=== PATIENT | male | born 1965 | race Caucasian/White ===

== ENCOUNTER 2020-10-27 11:44 | Observation (INO) ==
[2020-10-27] MEDS ORDERED: SODIUM CHLORIDE 0.9% 1,000 ML IV STA (12:58)
[2020-10-27 13:09] LABS: Basophils % 0.3 % (0.0-0.8); Eosinophils # 0.1 10*3/uL (0.0-0.87); Eosinophils % 0.9 % (0.00-10.9); Hematocrit 45.6 VOL% (42.0-52.0); Immature Granulocytes % 0.3 %; Immature Granulocytes Absolute 0.02 #; Lymphocytes # 0.8 10*3/uL (1.4-4.0); Lymphocytes % 10.7 % (21.2-54.2); Mean Corpuscular HGB Conc 30.7 GM/DL (32-36); Mean Platelet Volume 9.1 FL (9.6-12.0); Neutrophils % 80.8 % (38.7-73.9); Platelet Count 290 T/CUMM (130-400); Red Blood Count 5.56 MC/CUMM (3.8-5.5); Red Cell Distribution Width 15.5 % (9.3-17.3)
[2020-10-27 13:29] LABS: Albumin 2.9 G/DL (3.4-5.0); Calcium 8.2 MG/DL (8.5-10.1); Osmolality,Calculated 277.7 MOS/KG (273-304); Potassium 3.8 MMOL/L (3.5-5.1)
[2020-10-27] MEDS ORDERED: ONDANSETRON 4 MG/2 ML VIAL IV ONE (14:42)
[2020-10-27] MEDS ORDERED: PANTOPRAZOLE 40 MG VIAL IV STA (14:43)
[2020-10-27] MEDS ORDERED: ONDANSETRON 4 MG/2 ML VIAL IV PRN (17:40)
[2020-10-27] MEDS ORDERED: hydrALAZINE 20 MG/1 ML VIAL IV PRN (17:40)
[2020-10-27] MEDS ORDERED: DEXTROSE 50% 25 GM/50 ML VIAL IV PRN (17:40)
[2020-10-27] MEDS ORDERED: GLUCAGON 1 MG VIAL IM PRN (17:40)
[2020-10-27] MEDS ORDERED: PROMETHAZINE 25 MG/1 ML VIAL IM PRN (17:40)
[2020-10-27 18:35] LABS: Risk Ratio 2.66; Thyroid Stimulating Hormone 4.04 uIU/ml (0.358-3.74); VLDL Cholesterol 31.8 MG/DL
[2020-10-27] MEDS: DICYCLOMINE 20 MG TABLET PO SCH (21:10)
[2020-10-27] MEDS ORDERED: ALUMINUM/MAGNES/SIMETH MAX STR 30 ML UDCUP PO PRN (22:37)
[2020-10-28 06:18] LABS: Calcium 8.2 MG/DL (8.5-10.1); Osmolality,Calculated 275.7 MOS/KG (273-304); Potassium 3.6 MMOL/L (3.5-5.1)
[2020-10-28 06:21] LABS: Basophils % 0.3 % (0.0-0.8); Eosinophils # 0.1 10*3/uL (0.0-0.87); Eosinophils % 1.5 % (0.00-10.9); Hematocrit 42.3 VOL% (42.0-52.0); Immature Granulocytes % 0.4 %; Immature Granulocytes Absolute 0.03 #; Lymphocytes # 1.6 10*3/uL (1.4-4.0); Mean Corpuscular HGB Conc 29.8 GM/DL (32-36); Mean Corpuscular Volume 83.3 FL (87-102); Mean Platelet Volume 9.2 FL (9.6-12.0); Monocytes % 9.4 % (1.7-12.7); Neutrophils % 65.4 % (38.7-73.9); Platelet Count 265 T/CUMM (130-400); Red Blood Count 5.08 MC/CUMM (3.8-5.5); Red Cell Distribution Width 15.7 % (9.3-17.3); White Blood Count 7.1 T/CUMM (4-12)
[2020-10-28 06:23] LABS: Hemoglobin 12.6 GM/DL (14.0-18.0)
[2020-10-28] MEDS ORDERED: LOPERAMIDE 2 MG CAPSULE PO PRN (07:34)
[2020-10-28] MEDS: metroNIDAZOLE 500 MG TABLET PO SCH ×3 (09:51→20:09)
[2020-10-28] MEDS: DICYCLOMINE 20 MG TABLET PO SCH ×2 (09:51→20:09)
[2020-10-28] MEDS: PANTOPRAZOLE 40 MG VIAL IV SCH (10:38)
[2020-10-28] MEDS: SODIUM CHLORIDE 0.9% 1,000 ML IV SCH ×4 (13:11→20:09)
[2020-10-29] MEDS: SODIUM CHLORIDE 0.9% 1,000 ML IV SCH ×2 (01:10→11:02)
[2020-10-29] MEDS: PANTOPRAZOLE 40 MG VIAL IV SCH (08:10)
[2020-10-29] MEDS: metroNIDAZOLE 500 MG TABLET PO SCH (08:10)
[2020-10-29] MEDS: DICYCLOMINE 20 MG TABLET PO SCH (08:10)
[2020-10-29 12:23] VITALS: BP 148/99
== END 2020-10-29 13:05 | disposition home or self-care (01) ==
LOC: N.EDINP 11:44 → N.ED 11:44 → N.EDINP 19:38 → N.5E 20:01
PROVIDERS: ADMIT Internal Medicine; ATTEND Internal Medicine

== ENCOUNTER 2021-09-02 16:40 | Inpatient (IN) ==
[2021-09-02] MEDS ORDERED: SODIUM CHLORIDE 0.9% 1,000 ML IV STA (17:17)
[2021-09-02] MEDS ORDERED: ONDANSETRON 4 MG/2 ML VIAL IV STA (17:17)
[2021-09-02 17:41] LABS: Basophils % 0.3 % (0.0-0.8); Eosinophils # 0.2 10*3/uL (0.0-0.87); Eosinophils % 1.5 % (0.00-10.9); Hematocrit 50.1 VOL% (42.0-52.0); Hemoglobin 15.7 GM/DL (14.0-18.0); Immature Granulocytes % 0.4 %; Immature Granulocytes Absolute 0.04 #; Lymphocytes # 1.9 10*3/uL (1.4-4.0); Lymphocytes % 18.3 % (21.2-54.2); Mean Corpuscular HGB Conc 31.3 GM/DL (32-36); Mean Corpuscular Volume 79.1 FL (87-102); Mean Platelet Volume 8.8 FL (9.6-12.0); Monocytes # 1.1 10*3/uL (0.11-0.8); Monocytes % 10.6 % (1.7-12.7); Neutrophils % 68.9 % (38.7-73.9); Platelet Count 431 T/CUMM (130-400); Red Blood Count 6.33 MC/CUMM (3.8-5.5); Red Cell Distribution Width 17.1 % (9.3-17.3); White Blood Count 10.3 T/CUMM (4-12)
[2021-09-02 18:06] LABS: Albumin 3.3 G/DL (3.4-5.0); Bilirubin,Total 1.4 MG/DL (0.20-1.00); Calcium 8.7 MG/DL (8.5-10.1); Osmolality,Calculated 276.1 MOS/KG (273-304); Potassium 3.7 MMOL/L (3.5-5.1); Total Protein 7.6 G/DL (6.4-8.2)
[2021-09-02 20:05] LABS: Bacteria,Urine Occasional /HPF (Few); Hyaline Casts,Urine 4 /LPF (0-3); Mucus,Urine Occasional /LPF (Occasional); RBC,Urine 4 /HPF (0-4); Squamous Epithelial Cell,Urine Occasional /HPF (0-10); Urine Appearance Clear (Clear); Urine Color Yellow (Yellow); Urine pH 5.5 (4.5-8.0)
[2021-09-02 20:06] LABS: Bilirubin,Urine Negative (Negative); Blood, Urine Negative (Negative); Glucose,Urine (UA) Negative (Negative); Ketones,Urine Negative (Negative); Nitrite,Urine Negative (Negative); Protein,Urine Negative (Negative); Urine Urobilinogen 0.2 eU/dL (<2.0)
[2021-09-02] MEDS ORDERED: GLUCAGON 1 MG VIAL IM PRN (20:19)
[2021-09-02] MEDS ORDERED: hydrALAZINE 20 MG/1 ML VIAL IV PRN (20:24)
[2021-09-02] MEDS ORDERED: ACETAMINOPHEN 325 MG TABLET PO PRN (20:24)
[2021-09-02] MEDS ORDERED: PROMETHAZINE 25 MG/1 ML VIAL IM PRN (20:24)
[2021-09-02] MEDS ORDERED: DEXTROSE 10% 250 ML BAG IV PRN (20:38)
[2021-09-02] MEDS ORDERED: HYOSCYAMINE 0.125 MG TABLET PO PRN (20:40)
[2021-09-02] MEDS ORDERED: ALUMINUM/MAGNES/SIMETH MAX STR 30 ML UDCUP PO PRN (20:40)
[2021-09-02] MEDS: PANTOPRAZOLE 40 MG VIAL IV SCH (21:48)
[2021-09-02] MEDS: SODIUM CHLORIDE 0.9% 1,000 ML IV SCH (21:48)
[2021-09-02] MEDS: CIPROFLOXACIN INJ 400 MG/200 ML PREMIX IV SCH (21:48)
[2021-09-02] MEDS: ENOXAPARIN 40 MG/0.4 ML SYRINGE SUBCUT SCH (21:48)
[2021-09-03 04:12] LABS: Albumin 2.9 G/DL (3.4-5.0); Bilirubin,Total 1.4 MG/DL (0.20-1.00); Calcium 8.1 MG/DL (8.5-10.1); Potassium 3.7 MMOL/L (3.5-5.1); Risk Ratio 2.78; Total Protein 6.5 G/DL (6.4-8.2)
[2021-09-03 04:20] LABS: Basophils % 0.3 % (0.0-0.8); Eosinophils # 0.1 10*3/uL (0.0-0.87); Eosinophils % 1.6 % (0.00-10.9); Hematocrit 46.5 VOL% (42.0-52.0); Hemoglobin 14.3 GM/DL (14.0-18.0); Immature Granulocytes % 0.8 %; Immature Granulocytes Absolute 0.07 #; Lymphocytes # 1.6 10*3/uL (1.4-4.0); Lymphocytes % 18.7 % (21.2-54.2); Mean Corpuscular HGB Conc 30.8 GM/DL (32-36); Mean Corpuscular Volume 80.4 FL (87-102); Mean Platelet Volume 8.9 FL (9.6-12.0); Monocytes % 11.3 % (1.7-12.7); Neutrophils % 67.3 % (38.7-73.9); Platelet Count 347 T/CUMM (130-400); Red Blood Count 5.78 MC/CUMM (3.8-5.5); Red Cell Distribution Width 15.4 % (9.3-17.3); White Blood Count 8.6 T/CUMM (4-12)
[2021-09-03] MEDS: LACTATED RINGERS 1,000 ML IV SCH ×2 (09:04→18:33)
[2021-09-03] MEDS: PANTOPRAZOLE 40 MG VIAL IV SCH (09:08)
[2021-09-03] MEDS: ONDANSETRON 4 MG/2 ML VIAL IV PRN (09:11)
[2021-09-03] MEDS: CIPROFLOXACIN INJ 400 MG/200 ML PREMIX IV SCH ×2 (09:11→20:40)
[2021-09-03] MEDS: VANCOMYCIN INJ 2,000 MG in SODIUM CHLORIDE 0.9% 500 ML IV SCH (16:40)
[2021-09-03] MEDS: ENOXAPARIN 40 MG/0.4 ML SYRINGE SUBCUT SCH (20:40)
[2021-09-03] MEDS: SODIUM CHLORIDE 0.9% 1,000 ML IV SCH (21:45)
[2021-09-04 03:45] LABS: Basophils % 0.5 % (0.0-0.8); Eosinophils # 0.2 10*3/uL (0.0-0.87); Eosinophils % 2.7 % (0.00-10.9); Hematocrit 42.3 VOL% (42.0-52.0); Hemoglobin 13.1 GM/DL (14.0-18.0); Immature Granulocytes % 0.4 %; Immature Granulocytes Absolute 0.03 #; Lymphocytes # 1.7 10*3/uL (1.4-4.0); Lymphocytes % 19.7 % (21.2-54.2); Monocytes # 0.9 10*3/uL (0.11-0.8); Monocytes % 10.3 % (1.7-12.7); Neutrophils % 66.4 % (38.7-73.9); Platelet Count 296 T/CUMM (130-400); Red Blood Count 5.22 MC/CUMM (3.8-5.5); Red Cell Distribution Width 15.3 % (9.3-17.3); White Blood Count 8.4 T/CUMM (4-12)
[2021-09-04] MEDS: VANCOMYCIN INJ 2,000 MG in SODIUM CHLORIDE 0.9% 500 ML IV SCH (04:00)
[2021-09-04] MEDS: LACTATED RINGERS 1,000 ML IV SCH ×3 (04:00→21:19)
[2021-09-04 04:10] LABS: Osmolality,Calculated 274.7 MOS/KG (273-304); Potassium 3.7 MMOL/L (3.5-5.1)
[2021-09-04] MEDS: CIPROFLOXACIN INJ 400 MG/200 ML PREMIX IV SCH ×2 (09:16→21:19)
[2021-09-04] MEDS: PANTOPRAZOLE 40 MG VIAL IV SCH (09:16)
[2021-09-04] MEDS ORDERED: DICYCLOMINE 20 MG TABLET PO ONE (12:46)
[2021-09-04] MEDS: ENOXAPARIN 40 MG/0.4 ML SYRINGE SUBCUT SCH (21:20)
[2021-09-04] MEDS: LOPERAMIDE 2 MG CAPSULE PO PRN (21:22)
[2021-09-05] MEDS: LACTATED RINGERS 1,000 ML IV SCH ×3 (04:33→16:04)
[2021-09-05] MEDS: CIPROFLOXACIN INJ 400 MG/200 ML PREMIX IV SCH (09:35)
[2021-09-05] MEDS: PANTOPRAZOLE 40 MG VIAL IV SCH (09:36)
[2021-09-05] MEDS: ENOXAPARIN 40 MG/0.4 ML SYRINGE SUBCUT SCH (21:23)
[2021-09-06] MEDS: LACTATED RINGERS 1,000 ML IV SCH ×3 (00:35→20:45)
[2021-09-06] MEDS: PANTOPRAZOLE 40 MG VIAL IV SCH (08:12)
[2021-09-06] MEDS: ONDANSETRON 4 MG/2 ML VIAL IV PRN (08:12)
[2021-09-06] MEDS: LOPERAMIDE 2 MG CAPSULE PO PRN (19:44)
[2021-09-06] MEDS: ENOXAPARIN 40 MG/0.4 ML SYRINGE SUBCUT SCH (20:45)
[2021-09-07 04:38] LABS: Basophils % 0.3 % (0.0-0.8); Eosinophils # 0.2 10*3/uL (0.0-0.87); Eosinophils % 3.2 % (0.00-10.9); Hematocrit 41.8 VOL% (42.0-52.0); Hemoglobin 12.6 GM/DL (14.0-18.0); Immature Granulocytes % 0.5 %; Immature Granulocytes Absolute 0.03 #; Lymphocytes # 1.3 10*3/uL (1.4-4.0); Lymphocytes % 21.3 % (21.2-54.2); Mean Corpuscular HGB Conc 30.1 GM/DL (32-36); Mean Corpuscular Volume 81.5 FL (87-102); Mean Platelet Volume 9.2 FL (9.6-12.0); Monocytes # 0.6 10*3/uL (0.11-0.8); Monocytes % 10.1 % (1.7-12.7); Neutrophils % 64.6 % (38.7-73.9); Platelet Count 292 T/CUMM (130-400); Red Blood Count 5.13 MC/CUMM (3.8-5.5)
[2021-09-07 05:22] LABS: Calcium 8.2 MG/DL (8.5-10.1); Osmolality,Calculated 272.7 MOS/KG (273-304); Potassium 3.6 MMOL/L (3.5-5.1)
[2021-09-07] MEDS: LACTATED RINGERS 1,000 ML IV SCH ×3 (09:26→17:57)
[2021-09-07] MEDS: PANTOPRAZOLE 40 MG VIAL IV SCH (09:26)
[2021-09-07] MEDS ORDERED: ZINC OXIDE PASTE 113 GM TUBE TOP PRN (11:05)
[2021-09-07] MEDS: LOPERAMIDE 2 MG CAPSULE PO PRN (21:23)
[2021-09-07] MEDS: ENOXAPARIN 40 MG/0.4 ML SYRINGE SUBCUT SCH (21:23)
[2021-09-08] MEDS: LACTATED RINGERS 1,000 ML IV SCH ×2 (02:09→08:42)
[2021-09-08] MEDS: PANTOPRAZOLE 40 MG VIAL IV SCH (08:41)
[2021-09-08 11:47] VITALS: BP 143/78
== END 2021-09-08 12:31 | disposition home or self-care (01) | DRG 392 ==
LOC: EDBD → EDUNIT# → N.ED 16:40 → N.EDINP 16:40 → SUATTDRO 20:19 → N.EDINP 09-03 12:37 → N.5E 09-03 12:48
PROVIDERS: ADMIT Internal Medicine; ATTEND Emergency Medicine

== ENCOUNTER 2021-09-16 12:28 | Inpatient (IN) ==
[2021-09-16] MEDS ORDERED: SODIUM CHLORIDE 0.9% 1,000 ML IV STA (12:40)
[2021-09-16 12:57] LABS: Basophils % 0.4 % (0.0-0.8); Eosinophils # 0.2 10*3/uL (0.0-0.87); Eosinophils % 2.8 % (0.00-10.9); Hematocrit 42.6 VOL% (42.0-52.0); Hemoglobin 13.2 GM/DL (14.0-18.0); Immature Granulocytes % 0.4 %; Immature Granulocytes Absolute 0.03 #; Lymphocytes # 1.3 10*3/uL (1.4-4.0); Lymphocytes % 18.6 % (21.2-54.2); Mean Corpuscular Volume 80.5 FL (87-102); Mean Platelet Volume 8.6 FL (9.6-12.0); Monocytes # 0.4 10*3/uL (0.11-0.8); Monocytes % 6.2 % (1.7-12.7); Neutrophils % 71.6 % (38.7-73.9); Platelet Count 338 T/CUMM (130-400); Red Blood Count 5.29 MC/CUMM (3.8-5.5); Red Cell Distribution Width 15.4 % (9.3-17.3); White Blood Count 7.1 T/CUMM (4-12)
[2021-09-16 13:21] LABS: Albumin 2.8 G/DL (3.4-5.0); Bilirubin,Total 1.1 MG/DL (0.20-1.00); Calcium 8.5 MG/DL (8.5-10.1); Osmolality,Calculated 283.3 MOS/KG (273-304); Potassium 3.6 MMOL/L (3.5-5.1)
[2021-09-16] MEDS ORDERED: LEVOFLOXACIN INJ 750 MG/150 ML PREMIX IV STA (13:28)
[2021-09-16] MEDS ORDERED: metroNIDAZOLE INJ 500 MG/100 ML PREMIX IV STA (13:45)
[2021-09-16] MEDS ORDERED: LACTATED RINGERS 2,000 ML IV ONE (14:07)
[2021-09-16] MEDS ORDERED: GLUCAGON 1 MG VIAL IM PRN (15:31)
[2021-09-16] MEDS ORDERED: hydrALAZINE 20 MG/1 ML VIAL IV PRN (15:31)
[2021-09-16] MEDS ORDERED: DEXTROSE 10% 250 ML BAG IV PRN (15:43)
[2021-09-16 17:30] LABS: Thyroid Stimulating Hormone 2.37 uIU/ml (0.358-3.74)
[2021-09-16] MEDS: LACTATED RINGERS 1,000 ML IV SCH (18:58)
[2021-09-16] MEDS: ENOXAPARIN 40 MG/0.4 ML SYRINGE SUBCUT SCH (18:58)
[2021-09-16] MEDS: PANTOPRAZOLE 40 MG VIAL IV SCH (18:59)
[2021-09-16] MEDS: DICYCLOMINE 10 MG CAPSULE PO SCH (21:33)
[2021-09-17 06:43] LABS: Basophils % 0.5 % (0.0-0.8); Eosinophils # 0.2 10*3/uL (0.0-0.87); Eosinophils % 3.5 % (0.00-10.9); Hematocrit 40.7 VOL% (42.0-52.0); Hemoglobin 12.7 GM/DL (14.0-18.0); Immature Granulocytes % 0.3 %; Immature Granulocytes Absolute 0.02 #; Lymphocytes # 1.1 10*3/uL (1.4-4.0); Lymphocytes % 19.5 % (21.2-54.2); Mean Corpuscular HGB Conc 31.2 GM/DL (32-36); Mean Corpuscular Volume 80.3 FL (87-102); Mean Platelet Volume 8.4 FL (9.6-12.0); Monocytes # 0.5 10*3/uL (0.11-0.8); Monocytes % 9.4 % (1.7-12.7); Neutrophils % 66.8 % (38.7-73.9); Platelet Count 292 T/CUMM (130-400); Red Blood Count 5.07 MC/CUMM (3.8-5.5); Red Cell Distribution Width 15.4 % (9.3-17.3); White Blood Count 5.8 T/CUMM (4-12)
[2021-09-17 07:01] LABS: Albumin 2.5 G/DL (3.4-5.0); Bilirubin,Total 0.9 MG/DL (0.20-1.00); Calcium 8.4 MG/DL (8.5-10.1); Osmolality,Calculated 278.3 MOS/KG (273-304); Potassium 3.4 MMOL/L (3.5-5.1); Risk Ratio 2.53; VLDL Cholesterol 23.4 MG/DL
[2021-09-17] MEDS: DICYCLOMINE 10 MG CAPSULE PO SCH ×2 (09:03→20:15)
[2021-09-17] MEDS: amLODIPine 5 MG TABLET PO SCH (09:03)
[2021-09-17] MEDS: PANTOPRAZOLE 40 MG VIAL IV SCH (09:04)
[2021-09-17] MEDS: metroNIDAZOLE INJ 500 MG/100 ML PREMIX IV SCH ×4 (09:05→22:00)
[2021-09-17] MEDS ORDERED: POTASSIUM CHLORIDE 20 MEQ TABLET PO ONE (11:00)
[2021-09-17] MEDS: LACTATED RINGERS 1,000 ML IV SCH ×2 (11:39→13:43)
[2021-09-17] MEDS ORDERED: BISACODYL 5 MG TABLET PO ONE (17:00)
[2021-09-17] MEDS ORDERED: POLYETHYLENE GLYCOL POWDER 255 GM BOTTLE PO ONE (18:00)
[2021-09-17] MEDS: LEVOFLOXACIN INJ 750 MG/150 ML PREMIX IV SCH (18:22)
[2021-09-18] MEDS: LACTATED RINGERS 1,000 ML IV SCH ×2 (04:05→13:37)
[2021-09-18] MEDS ORDERED: POLYETHYLENE GLYCOL POWDER 255 GM BOTTLE PO ONE (05:00)
[2021-09-18] MEDS: metroNIDAZOLE INJ 500 MG/100 ML PREMIX IV SCH ×3 (06:00→22:16)
[2021-09-18 06:25] LABS: PT Patient Result 11.3 SECS (10.5-12.0)
[2021-09-18] MEDS ORDERED: LACTATED RINGERS 1,000 ML IV SCH (08:00)
[2021-09-18] MEDS: PANTOPRAZOLE 40 MG VIAL IV SCH (08:17)
[2021-09-18] MEDS: DICYCLOMINE 10 MG CAPSULE PO SCH ×2 (08:18→20:51)
[2021-09-18] MEDS: amLODIPine 5 MG TABLET PO SCH (08:18)
[2021-09-18] MEDS ORDERED: LIDOCAINE 2% 5 ML VIAL ONE (10:59)
[2021-09-18] MEDS ORDERED: propofoL 200 MG/20 ML VIAL IV ONE (10:59)
[2021-09-18] MEDS ORDERED: ETOMIDATE 20 MG/10 ML VIAL IV ONE (11:02)
[2021-09-18] MEDS: LEVOFLOXACIN INJ 750 MG/150 ML PREMIX IV SCH (16:17)
[2021-09-19] MEDS: LACTATED RINGERS 1,000 ML IV SCH ×2 (03:05→13:29)
[2021-09-19 07:00] LABS: Calcium 8.1 MG/DL (8.5-10.1); Osmolality,Calculated 276.4 MOS/KG (273-304); Potassium 3.6 MMOL/L (3.5-5.1)
[2021-09-19] MEDS: metroNIDAZOLE INJ 500 MG/100 ML PREMIX IV SCH (07:43)
[2021-09-19] MEDS: amLODIPine 5 MG TABLET PO SCH (09:15)
[2021-09-19] MEDS: DICYCLOMINE 10 MG CAPSULE PO SCH (09:15)
[2021-09-19] MEDS: PANTOPRAZOLE 40 MG VIAL IV SCH (10:42)
[2021-09-19 12:51] LABS: Glucose,Urine (UA) Negative (Negative); Protein,Urine Negative (Negative); Urine Appearance Slightly Cloudy (Clear); Urine Color Yellow (Yellow); Urine Specific Gravity 1.015 (1.001-1.035); Urine pH 5.5 (4.5-8.0)
[2021-09-19 12:52] LABS: Bilirubin,Urine Negative (Negative); Blood, Urine Negative (Negative); Ketones,Urine Negative (Negative); Nitrite,Urine Positive (Negative); Urine Urobilinogen 0.2 eU/dL (<2.0)
[2021-09-19 12:55] LABS: Bacteria,Urine Many /HPF (Few); Mucus,Urine Occasional /LPF (Occasional); RBC,Urine 1 /HPF (0-4); Squamous Epithelial Cell,Urine Occasional /HPF (0-10)
[2021-09-19 13:01] LABS: Barbiturates Screen,Urine Negative (Negative); Benzodiazepines Screen,Urine Negative (Negative); Cannabinoid Screen,Urine Negative (Negative); Opiate Screen,Urine Negative (Negative); Phencyclidine Screen,Urine Negative (Negative)
[2021-09-19] MEDS: ENOXAPARIN 40 MG/0.4 ML SYRINGE SUBCUT SCH (16:07)
[2021-09-20 05:50] LABS: Basophils % 0.4 % (0.0-0.8); Eosinophils # 0.3 10*3/uL (0.0-0.87); Hematocrit 40.2 VOL% (42.0-52.0); Hemoglobin 12.3 GM/DL (14.0-18.0); Immature Granulocytes % 0.4 %; Immature Granulocytes Absolute 0.02 #; Lymphocytes # 1.3 10*3/uL (1.4-4.0); Lymphocytes % 23.3 % (21.2-54.2); Mean Corpuscular HGB Conc 30.6 GM/DL (32-36); Mean Corpuscular Volume 80.2 FL (87-102); Mean Platelet Volume 8.6 FL (9.6-12.0); Monocytes # 0.6 10*3/uL (0.11-0.8); Monocytes % 10.2 % (1.7-12.7); Neutrophils % 60.7 % (38.7-73.9); Platelet Count 298 T/CUMM (130-400); Red Blood Count 5.01 MC/CUMM (3.8-5.5); Red Cell Distribution Width 15.3 % (9.3-17.3); White Blood Count 5.6 T/CUMM (4-12)
[2021-09-20 06:09] LABS: Calcium 8.4 MG/DL (8.5-10.1); Osmolality,Calculated 278.3 MOS/KG (273-304); Potassium 3.2 MMOL/L (3.5-5.1)
[2021-09-20] MEDS: amLODIPine 5 MG TABLET PO SCH (08:57)
[2021-09-20] MEDS: PANTOPRAZOLE 40 MG VIAL IV SCH (08:58)
[2021-09-20] MEDS: MEROPENEM 500 MG in SODIUM CHLORIDE 0.9% 100 ML IV SCH ×3 (09:37→21:04)
[2021-09-20] MEDS: ONDANSETRON 4 MG/2 ML VIAL IV PRN ×2 (17:37→21:04)
[2021-09-20] MEDS: ACETAMINOPHEN 325 MG TABLET PO PRN (21:04)
[2021-09-21] MEDS: MEROPENEM 500 MG in SODIUM CHLORIDE 0.9% 100 ML IV SCH ×4 (04:23→20:35)
[2021-09-21 05:41] LABS: Basophils % 0.3 % (0.0-0.8); Eosinophils # 0.4 10*3/uL (0.0-0.87); Eosinophils % 6.4 % (0.00-10.9); Hematocrit 43.9 VOL% (42.0-52.0); Hemoglobin 13.3 GM/DL (14.0-18.0); Immature Granulocytes % 0.4 %; Immature Granulocytes Absolute 0.03 #; Lymphocytes # 1.6 10*3/uL (1.4-4.0); Lymphocytes % 23.7 % (21.2-54.2); Mean Corpuscular HGB Conc 30.3 GM/DL (32-36); Mean Corpuscular Volume 80.7 FL (87-102); Mean Platelet Volume 8.7 FL (9.6-12.0); Monocytes # 0.6 10*3/uL (0.11-0.8); Neutrophils % 60.2 % (38.7-73.9); Platelet Count 338 T/CUMM (130-400); Red Blood Count 5.44 MC/CUMM (3.8-5.5); Red Cell Distribution Width 15.4 % (9.3-17.3); White Blood Count 6.9 T/CUMM (4-12)
[2021-09-21 05:53] LABS: Calcium 8.5 MG/DL (8.5-10.1); Osmolality,Calculated 276.4 MOS/KG (273-304); Potassium 3.5 MMOL/L (3.5-5.1)
[2021-09-21] MEDS: PANTOPRAZOLE 40 MG VIAL IV SCH (09:00)
[2021-09-21] MEDS: amLODIPine 5 MG TABLET PO SCH (09:00)
[2021-09-21] MEDS ORDERED: MIDAZOLAM 2 MG/2 ML VIAL ONE (09:12)
[2021-09-21] MEDS ORDERED: LIDOCAINE 1% 5 ML VIAL ONE (09:12)
[2021-09-21] MEDS ORDERED: ROPIVACAINE 0.5% 30 ML VIAL ONE (09:12)
[2021-09-21] MEDS ORDERED: fentaNYL 100 MCG/2 ML VIAL ONE (09:12)
[2021-09-21] MEDS ORDERED: propofoL 200 MG/20 ML VIAL IV ONE (09:53)
[2021-09-21] MEDS ORDERED: LIDOCAINE 2% 5 ML VIAL ONE (09:53)
[2021-09-21] MEDS ORDERED: ROCURONIUM 50 MG/5 ML VIAL IV ONE ×3 (09:53→14:01)
[2021-09-21] MEDS ORDERED: SEVOFLURANE 1 UNIT/15 MINUTE INH ONE ×2 (09:53→13:42)
[2021-09-21] MEDS ORDERED: LACTATED RINGERS 1,000 ML IV SCH (10:30)
[2021-09-21] MEDS ORDERED: ePHEDrine 50 MG/ML VIAL ONE (11:00)
[2021-09-21 11:21] LABS: Glucose,Urine (UA) Negative (Negative); Ketones,Urine Negative (Negative); Mucus,Urine Many /LPF (Occasional); Nitrite,Urine Negative (Negative); Protein,Urine Trace mg/dL (Negative); RBC,Urine 4 /HPF (0-4); Squamous Epithelial Cell,Urine Occasional /HPF (0-10); Urine Appearance Clear (Clear); Urine Color Dark yellow (Yellow); Urine Specific Gravity 1.025 (1.001-1.035); Urine pH 5.5 (4.5-8.0)
[2021-09-21 11:22] LABS: Bilirubin,Urine Small mg/dL (Negative); Blood, Urine Negative (Negative); Urine Urobilinogen 0.2 eU/dL (<2.0)
[2021-09-21] MEDS ORDERED: PHENYLEPHRINE 1 MG/10 ML SYRINGE IV ONE ×2 (11:46→13:56)
[2021-09-21] MEDS ORDERED: LACTATED RINGERS 1,000 ML IV ONE (12:05)
[2021-09-21] MEDS ORDERED: INDOCYANINE GREEN 25 MG VIAL IV ONE (13:20)
[2021-09-21] MEDS ORDERED: ACETAMINOPHEN INJ 1,000 MG/100 ML VIAL IV ONE (13:31)
[2021-09-21] MEDS ORDERED: ONDANSETRON 4 MG/2 ML VIAL ONE (13:41)
[2021-09-21] MEDS ORDERED: DESFLURANE 1 UNIT/15 MINUTE INH ONE ×3 (13:42→14:59)
[2021-09-21] MEDS ORDERED: SUGAMMADEX 200 MG/2 ML VIAL IV ONE (14:58)
[2021-09-21] MEDS ORDERED: HYDROmorphone 1 MG/1 ML SYRINGE ONE (15:44)
[2021-09-21] MEDS ORDERED: ALBUTEROL/IPRATROPIUM 3 ML NEB RESP TX PRN (15:50)
[2021-09-21] MEDS: HYDROmorphone 1 MG/1 ML SYRINGE IV PRN ×5 (15:50→22:41)
[2021-09-21] MEDS ORDERED: ONDANSETRON 4 MG/2 ML VIAL IV PRN (16:00)
[2021-09-21] MEDS ORDERED: MEPERIDINE 25 MG/1 ML VIAL ONE (16:08)
[2021-09-21] MEDS ORDERED: MEPERIDINE 50 MG/1 ML VIAL IV PRN (16:29)
[2021-09-21] MEDS: LACTATED RINGERS 1,000 ML IV SCH (22:12)
[2021-09-22] MEDS: HYDROmorphone 1 MG/1 ML SYRINGE IV PRN ×5 (01:34→20:19)
[2021-09-22] MEDS: MEROPENEM 500 MG in SODIUM CHLORIDE 0.9% 100 ML IV SCH ×4 (02:59→20:24)
[2021-09-22] MEDS: LACTATED RINGERS 1,000 ML IV SCH ×4 (06:01→23:50)
[2021-09-22 06:56] LABS: Calcium 7.9 MG/DL (8.5-10.1); Osmolality,Calculated 279.4 MOS/KG (273-304); Potassium 3.7 MMOL/L (3.5-5.1)
[2021-09-22 06:59] LABS: Basophils % 0.2 % (0.0-0.8); Eosinophils # 0.2 10*3/uL (0.0-0.87); Eosinophils % 1.9 % (0.00-10.9); Immature Granulocytes % 0.6 %; Immature Granulocytes Absolute 0.06 #; Lymphocytes % 10.7 % (21.2-54.2); Mean Corpuscular HGB Conc 30.2 GM/DL (32-36); Mean Corpuscular Volume 81.9 FL (87-102); Mean Platelet Volume 8.8 FL (9.6-12.0); Monocytes # 0.9 10*3/uL (0.11-0.8); Monocytes % 9.4 % (1.7-12.7); Neutrophils % 77.2 % (38.7-73.9); Platelet Count 273 T/CUMM (130-400); Red Blood Count 5.26 MC/CUMM (3.8-5.5); Red Cell Distribution Width 15.7 % (9.3-17.3); White Blood Count 9.6 T/CUMM (4-12)
[2021-09-22 07:06] LABS: Hematocrit 43.1 VOL% (42.0-52.0)
[2021-09-22] MEDS: amLODIPine 5 MG TABLET PO SCH (08:53)
[2021-09-22] MEDS: PANTOPRAZOLE 40 MG VIAL IV SCH (09:00)
[2021-09-22] MEDS: ACETAMINOPHEN 325 MG TABLET PO PRN (20:18)
[2021-09-23] MEDS: MEROPENEM 500 MG in SODIUM CHLORIDE 0.9% 100 ML IV SCH ×4 (03:08→20:23)
[2021-09-23] MEDS: HYDROmorphone 1 MG/1 ML SYRINGE IV PRN ×6 (06:22→21:41)
[2021-09-23] MEDS: LACTATED RINGERS 1,000 ML IV SCH ×2 (07:50→17:30)
[2021-09-23 08:42] LABS: Basophils % 0.2 % (0.0-0.8); Eosinophils # 0.4 10*3/uL (0.0-0.87); Eosinophils % 2.9 % (0.00-10.9); Hematocrit 40.8 VOL% (42.0-52.0); Hemoglobin 12.4 GM/DL (14.0-18.0); Immature Granulocytes % 0.5 %; Immature Granulocytes Absolute 0.07 #; Lymphocytes # 1.4 10*3/uL (1.4-4.0); Lymphocytes % 10.6 % (21.2-54.2); Mean Corpuscular HGB Conc 30.4 GM/DL (32-36); Mean Corpuscular Volume 81.9 FL (87-102); Mean Platelet Volume 8.6 FL (9.6-12.0); Monocytes # 1.1 10*3/uL (0.11-0.8); Monocytes % 8.3 % (1.7-12.7); Neutrophils % 77.5 % (38.7-73.9); Platelet Count 260 T/CUMM (130-400); Red Blood Count 4.98 MC/CUMM (3.8-5.5); Red Cell Distribution Width 15.9 % (9.3-17.3)
[2021-09-23 09:11] LABS: Albumin 1.8 G/DL (3.4-5.0); Bilirubin,Total 2.2 MG/DL (0.20-1.00); Calcium 7.8 MG/DL (8.5-10.1); Osmolality,Calculated 267.2 MOS/KG (273-304); Potassium 3.6 MMOL/L (3.5-5.1); Total Protein 5.3 G/DL (6.4-8.2)
[2021-09-23] MEDS: amLODIPine 5 MG TABLET PO SCH (09:57)
[2021-09-23] MEDS: PANTOPRAZOLE 40 MG VIAL IV SCH (09:57)
[2021-09-23] MEDS: TAMSULOSIN 0.4 MG CAPSULE PO SCH ×3 (12:32→20:22)
[2021-09-23] MEDS ORDERED: LEVOFLOXACIN INJ 750 MG/150 ML PREMIX IV SCH (13:00)
[2021-09-23] MEDS: ALBUTEROL/IPRATROPIUM 3 ML NEB RESP TX SCH ×2 (16:07→19:08)
[2021-09-23] MEDS: ACETAMINOPHEN 325 MG TABLET PO PRN (20:22)
[2021-09-23 22:00] LABS: Mucus,Urine Occasional /LPF (Occasional); Protein,Urine Trace mg/dL (Negative); RBC,Urine 2 /HPF (0-4); Squamous Epithelial Cell,Urine Occasional /HPF (0-10); Urine Appearance Slightly Cloudy (Clear); Urine Color Dark Yellow (Yellow); Urine pH 5.5 (4.5-8.0)
[2021-09-23 22:01] LABS: Bilirubin,Urine Negative (Negative); Blood, Urine Small mg/dL (Negative); Glucose,Urine (UA) Negative (Negative); Ketones,Urine Negative (Negative); Nitrite,Urine Negative (Negative); Urine Urobilinogen 0.2 eU/dL (<2.0)
[2021-09-24] MEDS: ALBUTEROL/IPRATROPIUM 3 ML NEB RESP TX SCH ×4 (00:59→19:30)
[2021-09-24] MEDS: HYDROmorphone 1 MG/1 ML SYRINGE IV PRN ×7 (01:13→21:30)
[2021-09-24] MEDS: MEROPENEM 500 MG in SODIUM CHLORIDE 0.9% 100 ML IV SCH ×4 (02:48→21:36)
[2021-09-24] MEDS: ACETAMINOPHEN 325 MG TABLET PO PRN ×2 (04:53→18:35)
[2021-09-24 05:27] LABS: Basophils % 0.1 % (0.0-0.8); Eosinophils # 0.3 10*3/uL (0.0-0.87); Eosinophils % 3.2 % (0.00-10.9); Hematocrit 36.5 VOL% (42.0-52.0); Hemoglobin 11.3 GM/DL (14.0-18.0); Immature Granulocytes % 0.7 %; Immature Granulocytes Absolute 0.07 #; Lymphocytes # 1.1 10*3/uL (1.4-4.0); Lymphocytes % 10.4 % (21.2-54.2); Mean Corpuscular Volume 80.8 FL (87-102); Mean Platelet Volume 9.3 FL (9.6-12.0); Monocytes # 0.7 10*3/uL (0.11-0.8); Monocytes % 7.1 % (1.7-12.7); Neutrophils % 78.5 % (38.7-73.9); Platelet Count 222 T/CUMM (130-400); Red Blood Count 4.52 MC/CUMM (3.8-5.5); Red Cell Distribution Width 15.4 % (9.3-17.3); White Blood Count 10.5 T/CUMM (4-12)
[2021-09-24 05:51] LABS: Albumin 1.7 G/DL (3.4-5.0); Bilirubin,Total 1.5 MG/DL (0.20-1.00); Calcium 7.8 MG/DL (8.5-10.1); Osmolality,Calculated 268.1 MOS/KG (273-304); Potassium 3.5 MMOL/L (3.5-5.1); Total Protein 5.2 G/DL (6.4-8.2)
[2021-09-24] MEDS: PANTOPRAZOLE 40 MG VIAL IV SCH (09:13)
[2021-09-24] MEDS: TAMSULOSIN 0.4 MG CAPSULE PO SCH ×2 (09:13→21:30)
[2021-09-24] MEDS: amLODIPine 5 MG TABLET PO SCH (09:13)
[2021-09-24] MEDS: LACTATED RINGERS 1,000 ML IV SCH ×3 (09:14→21:35)
[2021-09-24] MEDS ORDERED: VANCOMYCIN INJ 2,250 MG in SODIUM CHLORIDE 0.9% 250 ML IV SCH (11:00)
[2021-09-24] MEDS: VANCOMYCIN INJ 2,250 MG in SODIUM CHLORIDE 0.9% 500 ML IV SCH (15:41)
[2021-09-25] MEDS: ALBUTEROL/IPRATROPIUM 3 ML NEB RESP TX SCH ×4 (00:30→20:00)
[2021-09-25] MEDS: HYDROmorphone 1 MG/1 ML SYRINGE IV PRN ×7 (00:34→23:29)
[2021-09-25] MEDS: LACTATED RINGERS 1,000 ML IV SCH (04:24)
[2021-09-25] MEDS: MEROPENEM 500 MG in SODIUM CHLORIDE 0.9% 100 ML IV SCH ×4 (04:49→22:13)
[2021-09-25 04:50] LABS: Basophils % 0.4 % (0.0-0.8); Eosinophils # 0.5 10*3/uL (0.0-0.87); Eosinophils % 6.2 % (0.00-10.9); Hematocrit 33.9 VOL% (42.0-52.0); Hemoglobin 10.4 GM/DL (14.0-18.0); Immature Granulocytes % 0.7 %; Immature Granulocytes Absolute 0.05 #; Lymphocytes # 0.8 10*3/uL (1.4-4.0); Mean Corpuscular HGB Conc 30.7 GM/DL (32-36); Mean Corpuscular Volume 80.5 FL (87-102); Mean Platelet Volume 9.1 FL (9.6-12.0); Monocytes # 0.6 10*3/uL (0.11-0.8); Monocytes % 8.1 % (1.7-12.7); Neutrophils % 73.6 % (38.7-73.9); Platelet Count 225 T/CUMM (130-400); Red Blood Count 4.21 MC/CUMM (3.8-5.5); Red Cell Distribution Width 15.4 % (9.3-17.3); White Blood Count 7.3 T/CUMM (4-12)
[2021-09-25 05:31] LABS: Albumin 1.6 G/DL (3.4-5.0); Bilirubin,Total 0.7 MG/DL (0.20-1.00); Calcium 7.9 MG/DL (8.5-10.1); Osmolality,Calculated 274.7 MOS/KG (273-304); Potassium 3.1 MMOL/L (3.5-5.1)
[2021-09-25] MEDS ORDERED: POTASSIUM CHLORIDE 20 MEQ TABLET PO ONE ×3 (07:46→16:00)
[2021-09-25] MEDS: amLODIPine 5 MG TABLET PO SCH (08:58)
[2021-09-25] MEDS: PANTOPRAZOLE 40 MG VIAL IV SCH (08:58)
[2021-09-25] MEDS: TAMSULOSIN 0.4 MG CAPSULE PO SCH ×2 (09:02→20:42)
[2021-09-25] MEDS: VANCOMYCIN INJ 2,250 MG in SODIUM CHLORIDE 0.9% 500 ML IV SCH ×2 (18:11)
[2021-09-26] MEDS: VANCOMYCIN INJ 2,250 MG in SODIUM CHLORIDE 0.9% 500 ML IV SCH ×2 (00:37→12:20)
[2021-09-26] MEDS: ALBUTEROL/IPRATROPIUM 3 ML NEB RESP TX SCH ×4 (01:37→14:45)
[2021-09-26] MEDS: HYDROmorphone 1 MG/1 ML SYRINGE IV PRN ×8 (02:23→22:58)
[2021-09-26] MEDS: MEROPENEM 500 MG in SODIUM CHLORIDE 0.9% 100 ML IV SCH ×4 (04:34→20:29)
[2021-09-26] MEDS: LACTATED RINGERS 1,000 ML IV SCH ×4 (04:39→20:16)
[2021-09-26 06:18] LABS: Basophils % 0.4 % (0.0-0.8); Eosinophils # 0.4 10*3/uL (0.0-0.87); Eosinophils % 7.7 % (0.00-10.9); Hematocrit 34.3 VOL% (42.0-52.0); Hemoglobin 10.5 GM/DL (14.0-18.0); Immature Granulocytes % 0.8 %; Immature Granulocytes Absolute 0.04 #; Lymphocytes # 0.8 10*3/uL (1.4-4.0); Lymphocytes % 15.7 % (21.2-54.2); Mean Corpuscular HGB Conc 30.6 GM/DL (32-36); Mean Corpuscular Volume 81.1 FL (87-102); Monocytes # 0.5 10*3/uL (0.11-0.8); Neutrophils % 66.4 % (38.7-73.9); Platelet Count 238 T/CUMM (130-400); Red Blood Count 4.23 MC/CUMM (3.8-5.5); Red Cell Distribution Width 15.6 % (9.3-17.3); White Blood Count 5.2 T/CUMM (4-12)
[2021-09-26 06:37] LABS: Albumin 1.6 G/DL (3.4-5.0); Bilirubin,Total 0.7 MG/DL (0.20-1.00); Calcium 7.8 MG/DL (8.5-10.1); Osmolality,Calculated 272.7 MOS/KG (273-304); Potassium 3.4 MMOL/L (3.5-5.1)
[2021-09-26] MEDS ORDERED: POTASSIUM CHLORIDE 20 MEQ TABLET PO ONE (07:47)
[2021-09-26] MEDS: TAMSULOSIN 0.4 MG CAPSULE PO SCH ×2 (09:09→20:26)
[2021-09-26] MEDS: PANTOPRAZOLE 40 MG VIAL IV SCH (09:09)
[2021-09-26] MEDS: amLODIPine 5 MG TABLET PO SCH (09:11)
[2021-09-26] MEDS: POLYVINYL ALCOHOL 1.4% OPH SOLN 15 ML BOTTLE BOTH EYES PRN ×2 (15:52→20:31)
[2021-09-27] MEDS ORDERED: VANCOMYCIN INJ 1,750 MG in SODIUM CHLORIDE 0.9% 500 ML IV SCH (00:30)
[2021-09-27] MEDS: ALBUTEROL/IPRATROPIUM 3 ML NEB RESP TX SCH ×4 (00:40→19:04)
[2021-09-27] MEDS: HYDROmorphone 1 MG/1 ML SYRINGE IV PRN ×9 (00:59→22:15)
[2021-09-27] MEDS: MEROPENEM 500 MG in SODIUM CHLORIDE 0.9% 100 ML IV SCH ×2 (03:21→09:18)
[2021-09-27] MEDS: LACTATED RINGERS 1,000 ML IV SCH ×2 (05:59→18:19)
[2021-09-27 06:24] LABS: Basophils % 0.4 % (0.0-0.8); Eosinophils # 0.5 10*3/uL (0.0-0.87); Eosinophils % 8.1 % (0.00-10.9); Hematocrit 33.8 VOL% (42.0-52.0); Hemoglobin 10.3 GM/DL (14.0-18.0); Immature Granulocytes % 0.5 %; Immature Granulocytes Absolute 0.03 #; Lymphocytes # 1.1 10*3/uL (1.4-4.0); Lymphocytes % 19.9 % (21.2-54.2); Mean Corpuscular HGB Conc 30.5 GM/DL (32-36); Mean Corpuscular Volume 81.3 FL (87-102); Monocytes # 0.6 10*3/uL (0.11-0.8); Monocytes % 9.9 % (1.7-12.7); Neutrophils % 61.2 % (38.7-73.9); Platelet Count 258 T/CUMM (130-400); Red Blood Count 4.16 MC/CUMM (3.8-5.5); Red Cell Distribution Width 15.8 % (9.3-17.3); White Blood Count 5.5 T/CUMM (4-12)
[2021-09-27 06:43] LABS: Albumin 1.6 G/DL (3.4-5.0); Bilirubin,Total 0.8 MG/DL (0.20-1.00); Osmolality,Calculated 273.5 MOS/KG (273-304); Potassium 3.4 MMOL/L (3.5-5.1); Total Protein 5.1 G/DL (6.4-8.2)
[2021-09-27] MEDS ORDERED: POTASSIUM CHLORIDE 20 MEQ TABLET PO ONE (07:57)
[2021-09-27] MEDS: PANTOPRAZOLE 40 MG VIAL IV SCH (09:17)
[2021-09-27] MEDS: TAMSULOSIN 0.4 MG CAPSULE PO SCH ×2 (09:18→22:15)
[2021-09-27] MEDS: amLODIPine 5 MG TABLET PO SCH (09:18)
[2021-09-28] MEDS: HYDROmorphone 1 MG/1 ML SYRINGE IV PRN ×9 (00:51→23:22)
[2021-09-28] MEDS: ALBUTEROL/IPRATROPIUM 3 ML NEB RESP TX SCH ×4 (01:16→21:23)
[2021-09-28] MEDS: POLYVINYL ALCOHOL 1.4% OPH SOLN 15 ML BOTTLE BOTH EYES PRN (03:19)
[2021-09-28 06:20] LABS: Basophils % 0.3 % (0.0-0.8); Eosinophils # 0.4 10*3/uL (0.0-0.87); Eosinophils % 6.8 % (0.00-10.9); Hematocrit 33.6 VOL% (42.0-52.0); Hemoglobin 10.1 GM/DL (14.0-18.0); Immature Granulocytes Absolute 0.06 #; Lymphocytes % 16.4 % (21.2-54.2); Mean Corpuscular HGB Conc 30.1 GM/DL (32-36); Mean Corpuscular Volume 81.2 FL (87-102); Mean Platelet Volume 9.5 FL (9.6-12.0); Monocytes # 0.5 10*3/uL (0.11-0.8); Monocytes % 7.7 % (1.7-12.7); Neutrophils % 67.8 % (38.7-73.9); Platelet Count 255 T/CUMM (130-400); Red Blood Count 4.14 MC/CUMM (3.8-5.5); Red Cell Distribution Width 15.9 % (9.3-17.3); White Blood Count 5.9 T/CUMM (4-12)
[2021-09-28 06:40] LABS: Albumin 1.6 G/DL (3.4-5.0); Bilirubin,Total 0.7 MG/DL (0.20-1.00); Calcium 7.9 MG/DL (8.5-10.1); Osmolality,Calculated 276.4 MOS/KG (273-304); Potassium 3.6 MMOL/L (3.5-5.1)
[2021-09-28] MEDS: TAMSULOSIN 0.4 MG CAPSULE PO SCH ×2 (08:51→20:50)
[2021-09-28] MEDS: amLODIPine 5 MG TABLET PO SCH (08:51)
[2021-09-28] MEDS: PANTOPRAZOLE 40 MG VIAL IV SCH (08:52)
[2021-09-28] MEDS: ENOXAPARIN 40 MG/0.4 ML SYRINGE SUBCUT SCH (20:50)
[2021-09-29] MEDS: ALBUTEROL/IPRATROPIUM 3 ML NEB RESP TX SCH ×4 (01:23→19:13)
[2021-09-29] MEDS: HYDROmorphone 1 MG/1 ML SYRINGE IV PRN ×6 (02:51→21:46)
[2021-09-29] MEDS: TAMSULOSIN 0.4 MG CAPSULE PO SCH ×2 (08:57→21:42)
[2021-09-29] MEDS: amLODIPine 5 MG TABLET PO SCH (08:57)
[2021-09-29] MEDS: PANTOPRAZOLE 40 MG VIAL IV SCH (09:00)
[2021-09-29] MEDS: ENOXAPARIN 40 MG/0.4 ML SYRINGE SUBCUT SCH (21:43)
[2021-09-30] MEDS: HYDROmorphone 1 MG/1 ML SYRINGE IV PRN ×9 (00:02→21:44)
[2021-09-30] MEDS: ALBUTEROL/IPRATROPIUM 3 ML NEB RESP TX SCH ×4 (01:17→19:55)
[2021-09-30] MEDS: amLODIPine 5 MG TABLET PO SCH (08:46)
[2021-09-30] MEDS: TAMSULOSIN 0.4 MG CAPSULE PO SCH ×2 (08:46→21:40)
[2021-09-30] MEDS: LORazepam 1 MG TABLET PO PRN ×2 (10:34→21:40)
[2021-09-30] MEDS: ENOXAPARIN 40 MG/0.4 ML SYRINGE SUBCUT SCH (21:41)
[2021-10-01] MEDS: HYDROmorphone 1 MG/1 ML SYRINGE IV PRN ×4 (00:02→07:22)
[2021-10-01] MEDS: ALBUTEROL/IPRATROPIUM 3 ML NEB RESP TX SCH ×4 (01:00→19:20)
[2021-10-01] MEDS: PANTOPRAZOLE 40 MG TABLET PO SCH (07:22)
[2021-10-01] MEDS: amLODIPine 5 MG TABLET PO SCH (09:55)
[2021-10-01] MEDS: LORazepam 1 MG TABLET PO PRN (09:55)
[2021-10-01] MEDS: TAMSULOSIN 0.4 MG CAPSULE PO SCH ×2 (09:56→21:44)
[2021-10-01] MEDS: DIAZEPAM 2 MG TABLET PO PRN (19:16)
[2021-10-01] MEDS: ENOXAPARIN 40 MG/0.4 ML SYRINGE SUBCUT SCH (21:44)
[2021-10-01] MEDS: ACETAMINOPHEN 325 MG TABLET PO PRN (21:44)
[2021-10-01] MEDS: ZINC OXIDE PASTE 113 GM TUBE TOP SCH (23:01)
[2021-10-02] MEDS: ALBUTEROL/IPRATROPIUM 3 ML NEB RESP TX SCH ×4 (00:56→19:11)
[2021-10-02 05:10] LABS: Basophils % 0.3 % (0.0-0.8); Eosinophils # 0.4 10*3/uL (0.0-0.87); Eosinophils % 3.4 % (0.00-10.9); Hematocrit 34.9 VOL% (42.0-52.0); Hemoglobin 10.7 GM/DL (14.0-18.0); Immature Granulocytes % 0.8 %; Immature Granulocytes Absolute 0.08 #; Lymphocytes % 9.3 % (21.2-54.2); Mean Corpuscular HGB Conc 30.7 GM/DL (32-36); Mean Corpuscular Volume 80.4 FL (87-102); Mean Platelet Volume 8.8 FL (9.6-12.0); Monocytes # 0.6 10*3/uL (0.11-0.8); Monocytes % 5.9 % (1.7-12.7); Neutrophils % 80.3 % (38.7-73.9); Platelet Count 305 T/CUMM (130-400); Red Blood Count 4.34 MC/CUMM (3.8-5.5); Red Cell Distribution Width 15.7 % (9.3-17.3); White Blood Count 10.6 T/CUMM (4-12)
[2021-10-02 05:27] LABS: Calcium 8.1 MG/DL (8.5-10.1); Osmolality,Calculated 279.3 MOS/KG (273-304); Potassium 3.5 MMOL/L (3.5-5.1)
[2021-10-02] MEDS: PANTOPRAZOLE 40 MG TABLET PO SCH (05:39)
[2021-10-02] MEDS: ZINC OXIDE PASTE 113 GM TUBE TOP SCH ×2 (09:33→20:14)
[2021-10-02] MEDS: DIAZEPAM 2 MG TABLET PO PRN ×3 (09:34→22:44)
[2021-10-02] MEDS: amLODIPine 5 MG TABLET PO SCH (09:34)
[2021-10-02] MEDS: TAMSULOSIN 0.4 MG CAPSULE PO SCH ×2 (09:34→20:14)
[2021-10-02] MEDS: CHOLESTYRAMINE 4 GM PACK PO SCH ×2 (09:34→22:20)
[2021-10-02] MEDS: BACILLUS COAGULANS CAPLET PO SCH (13:24)
[2021-10-02] MEDS: ENOXAPARIN 40 MG/0.4 ML SYRINGE SUBCUT SCH (20:14)
[2021-10-03] MEDS: DIAZEPAM 2 MG TABLET PO PRN ×3 (04:14→20:44)
[2021-10-03] MEDS: PANTOPRAZOLE 40 MG TABLET PO SCH (05:38)
[2021-10-03] MEDS: ALBUTEROL/IPRATROPIUM 3 ML NEB RESP TX SCH ×4 (07:52→20:03)
[2021-10-03] MEDS: ZINC OXIDE PASTE 113 GM TUBE TOP SCH ×2 (09:20→20:47)
[2021-10-03] MEDS: TAMSULOSIN 0.4 MG CAPSULE PO SCH ×2 (09:20→20:44)
[2021-10-03] MEDS: CHOLESTYRAMINE 4 GM PACK PO SCH ×2 (09:20→22:01)
[2021-10-03] MEDS: BACILLUS COAGULANS CAPLET PO SCH (09:20)
[2021-10-03] MEDS: amLODIPine 5 MG TABLET PO SCH (09:20)
[2021-10-03] MEDS: DIPHENOXYLATE/ATROPINE 2.5-0.025 MG TABLET PO PRN ×2 (13:18→20:44)
[2021-10-03] MEDS: ENOXAPARIN 40 MG/0.4 ML SYRINGE SUBCUT SCH (20:43)
[2021-10-04] MEDS: ALBUTEROL/IPRATROPIUM 3 ML NEB RESP TX SCH ×4 (01:21→20:24)
[2021-10-04] MEDS: PANTOPRAZOLE 40 MG TABLET PO SCH (05:49)
[2021-10-04] MEDS: DIAZEPAM 2 MG TABLET PO PRN ×2 (05:49→16:46)
[2021-10-04] MEDS: DIPHENOXYLATE/ATROPINE 2.5-0.025 MG TABLET PO PRN ×2 (05:49→16:48)
[2021-10-04] MEDS: ZINC OXIDE PASTE 113 GM TUBE TOP SCH ×2 (09:58→21:28)
[2021-10-04] MEDS: BACILLUS COAGULANS CAPLET PO SCH (09:58)
[2021-10-04] MEDS: TAMSULOSIN 0.4 MG CAPSULE PO SCH ×2 (09:58→21:26)
[2021-10-04] MEDS: CHOLESTYRAMINE 4 GM PACK PO SCH ×2 (09:58→21:28)
[2021-10-04] MEDS: amLODIPine 5 MG TABLET PO SCH (09:58)
[2021-10-04] MEDS: ENOXAPARIN 40 MG/0.4 ML SYRINGE SUBCUT SCH (21:26)
[2021-10-05] MEDS: ALBUTEROL/IPRATROPIUM 3 ML NEB RESP TX SCH ×2 (00:42→10:26)
[2021-10-05] MEDS: DIAZEPAM 2 MG TABLET PO PRN ×2 (02:13→10:22)
[2021-10-05 05:41] LABS: Osmolality,Calculated 278.3 MOS/KG (273-304); Potassium 3.6 MMOL/L (3.5-5.1)
[2021-10-05 05:54] LABS: Basophils % 0.3 % (0.0-0.8); Eosinophils # 0.5 10*3/uL (0.0-0.87); Eosinophils % 7.2 % (0.00-10.9); Hematocrit 34.4 VOL% (42.0-52.0); Hemoglobin 10.4 GM/DL (14.0-18.0); Immature Granulocytes % 1.7 %; Immature Granulocytes Absolute 0.12 #; Lymphocytes # 1.7 10*3/uL (1.4-4.0); Lymphocytes % 22.9 % (21.2-54.2); Mean Corpuscular HGB Conc 30.2 GM/DL (32-36); Mean Corpuscular Volume 81.1 FL (87-102); Monocytes # 0.5 10*3/uL (0.11-0.8); Monocytes % 7.4 % (1.7-12.7); Neutrophils % 60.5 % (38.7-73.9); Platelet Count 377 T/CUMM (130-400); Red Blood Count 4.24 MC/CUMM (3.8-5.5); Red Cell Distribution Width 15.7 % (9.3-17.3); White Blood Count 7.2 T/CUMM (4-12)
[2021-10-05] MEDS: PANTOPRAZOLE 40 MG TABLET PO SCH (06:13)
[2021-10-05] MEDS: BACILLUS COAGULANS CAPLET PO SCH (10:02)
[2021-10-05] MEDS: amLODIPine 5 MG TABLET PO SCH (10:02)
[2021-10-05] MEDS: TAMSULOSIN 0.4 MG CAPSULE PO SCH (10:02)
[2021-10-05] MEDS: CHOLESTYRAMINE 4 GM PACK PO SCH (10:04)
[2021-10-05] MEDS: ZINC OXIDE PASTE 113 GM TUBE TOP SCH (10:08)
[2021-10-05 11:45] VITALS: BP 112/70
== END 2021-10-05 14:30 | disposition swing bed (61) | DRG 329 ==
LOC: N.ED 12:28 → N.EDINP 15:31 → SUATTDRO 15:31 → N.5E 16:52
PROVIDERS: ADMIT Internal Medicine; ATTEND Internal Medicine

== ENCOUNTER 2021-12-04 08:03 | Inpatient (IN) ==
[2021-12-04 09:00] LABS: Basophils % 0.3 % (0.0-0.8); Eosinophils # 0.2 10*3/uL (0.0-0.87); Eosinophils % 2.2 % (0.00-10.9); Hematocrit 39.9 VOL% (42.0-52.0); Hemoglobin 12.9 GM/DL (14.0-18.0); Immature Granulocytes % 0.7 %; Immature Granulocytes Absolute 0.06 #; Lymphocytes # 1.3 10*3/uL (1.4-4.0); Lymphocytes % 14.1 % (21.2-54.2); Mean Corpuscular HGB Conc 32.3 GM/DL (32-36); Mean Corpuscular Volume 77.9 FL (87-102); Mean Platelet Volume 10.3 FL (9.6-12.0); Monocytes # 0.8 10*3/uL (0.11-0.8); Monocytes % 8.9 % (1.7-12.7); Neutrophils % 73.8 % (38.7-73.9); Platelet Count 334 T/CUMM (130-400); Red Blood Count 5.12 MC/CUMM (3.8-5.5); Red Cell Distribution Width 16.1 % (9.3-17.3); White Blood Count 9.2 T/CUMM (4-12)
[2021-12-04 09:25] LABS: Albumin 2.7 G/DL (3.4-5.0); Bilirubin,Total 1.3 MG/DL (0.20-1.00); Calcium 8.2 MG/DL (8.5-10.1); Osmolality,Calculated 272.1 MOS/KG (273-304); Potassium 2.9 MMOL/L (3.5-5.1); Total Protein 6.1 G/DL (6.4-8.2)
[2021-12-04 10:10] LABS: Bacteria,Urine Occasional /HPF (Few); RBC,Urine 2 /HPF (0-4); Squamous Epithelial Cell,Urine Occasional /HPF (0-10)
[2021-12-04 10:11] LABS: Bilirubin,Urine Negative (Negative); Blood, Urine Trace mg/dL (Negative); Glucose,Urine (UA) Negative (Negative); Ketones,Urine Negative (Negative); Nitrite,Urine Positive (Negative); Protein,Urine Negative (Negative); Urine Appearance Clear (Clear); Urine Color Yellow (Yellow); Urine Specific Gravity 1.015 (1.001-1.035); Urine Urobilinogen 0.2 eU/dL (<2.0); Urine pH 6.5 (4.5-8.0)
[2021-12-04] MEDS ORDERED: cefTRIAXone 1,000 MG in SODIUM CHLORIDE 0.9% 100 ML IV STA (10:22)
[2021-12-04] MEDS ORDERED: SODIUM CHLOR 0.45% KCL 20 MEQ 20 MEQ/1,000 ML BAG IV SCH (10:30)
[2021-12-04] MEDS ORDERED: ACETAMINOPHEN 325 MG TABLET PO PRN (15:10)
[2021-12-04] MEDS ORDERED: GLUCAGON 1 MG VIAL IM PRN (15:10)
[2021-12-04] MEDS ORDERED: hydrALAZINE 20 MG/1 ML VIAL IV PRN (15:10)
[2021-12-04] MEDS ORDERED: ALBUTEROL 2.5 MG/3 ML NEB RESP TX PRN (15:10)
[2021-12-04] MEDS ORDERED: DOCUSATE SODIUM 100 MG CAPSULE PO PRN (15:10)
[2021-12-04] MEDS ORDERED: ONDANSETRON 4 MG/2 ML VIAL IV PRN (15:10)
[2021-12-04] MEDS ORDERED: DEXTROSE 10% 250 ML BAG IV PRN (15:20)
[2021-12-04] MEDS ORDERED: SODIUM CHLORIDE 0.9% 1,000 ML IV SCH (15:30)
[2021-12-04] MEDS: ENOXAPARIN 40 MG/0.4 ML SYRINGE SUBCUT SCH (21:06)
[2021-12-04] MEDS: POTASSIUM CHLORIDE INJ 30 MEQ in SODIUM CHLORIDE 0.9% 1,000 ML IV SCH (23:03)
[2021-12-05 06:50] LABS: Basophils % 0.3 % (0.0-0.8); Eosinophils # 0.2 10*3/uL (0.0-0.87); Eosinophils % 3.4 % (0.00-10.9); Hematocrit 38.8 VOL% (42.0-52.0); Hemoglobin 12.1 GM/DL (14.0-18.0); Immature Granulocytes % 0.6 %; Immature Granulocytes Absolute 0.04 #; Lymphocytes # 1.3 10*3/uL (1.4-4.0); Lymphocytes % 18.8 % (21.2-54.2); Mean Corpuscular HGB Conc 31.2 GM/DL (32-36); Mean Corpuscular Volume 80.2 FL (87-102); Mean Platelet Volume 9.7 FL (9.6-12.0); Monocytes # 0.6 10*3/uL (0.11-0.8); Monocytes % 8.3 % (1.7-12.7); Neutrophils % 68.6 % (38.7-73.9); Platelet Count 299 T/CUMM (130-400); Red Blood Count 4.84 MC/CUMM (3.8-5.5); White Blood Count 7.1 T/CUMM (4-12)
[2021-12-05 07:04] LABS: Calcium 8.3 MG/DL (8.5-10.1); Osmolality,Calculated 278.4 MOS/KG (273-304)
[2021-12-05] MEDS ORDERED: POTASSIUM CHLORIDE 20 MEQ TABLET PO ONE (08:18)
[2021-12-05] MEDS ORDERED: cefTRIAXone 1,000 MG in SODIUM CHLORIDE 0.9% 100 ML IV SCH (09:00)
[2021-12-05] MEDS: PANTOPRAZOLE 40 MG TABLET PO SCH (09:13)
[2021-12-05] MEDS ORDERED: MEROPENEM 2,000 MG in SODIUM CHLORIDE 0.9% 100 ML IV SCH (14:00)
[2021-12-05] MEDS: MEROPENEM 500 MG in SODIUM CHLORIDE 0.9% 100 ML IV SCH ×2 (15:11→20:28)
[2021-12-05] MEDS: POTASSIUM CHLORIDE INJ 30 MEQ in SODIUM CHLORIDE 0.9% 1,000 ML IV SCH (15:41)
[2021-12-05] MEDS: ENOXAPARIN 40 MG/0.4 ML SYRINGE SUBCUT SCH (20:29)
[2021-12-06] MEDS: POTASSIUM CHLORIDE INJ 30 MEQ in SODIUM CHLORIDE 0.9% 1,000 ML IV SCH (00:51)
[2021-12-06] MEDS: MEROPENEM 500 MG in SODIUM CHLORIDE 0.9% 100 ML IV SCH ×4 (02:19→20:41)
[2021-12-06 07:17] LABS: Calcium 8.2 MG/DL (8.5-10.1); Potassium 3.7 MMOL/L (3.5-5.1)
[2021-12-06 07:44] LABS: Basophils % 0.3 % (0.0-0.8); Eosinophils # 0.3 10*3/uL (0.0-0.87); Hematocrit 39.1 VOL% (42.0-52.0); Immature Granulocytes % 0.4 %; Immature Granulocytes Absolute 0.03 #; Lymphocytes # 1.6 10*3/uL (1.4-4.0); Lymphocytes % 23.5 % (21.2-54.2); Mean Corpuscular HGB Conc 30.2 GM/DL (32-36); Monocytes # 0.7 10*3/uL (0.11-0.8); Monocytes % 10.8 % (1.7-12.7); Platelet Count 296 T/CUMM (130-400); Red Blood Count 4.71 MC/CUMM (3.8-5.5); Red Cell Distribution Width 16.1 % (9.3-17.3); White Blood Count 6.7 T/CUMM (4-12)
[2021-12-06 07:45] LABS: Hemoglobin 11.8 GM/DL (14.0-18.0)
[2021-12-06] MEDS: POTASSIUM CHLORIDE 20 MEQ TABLET PO SCH (08:26)
[2021-12-06] MEDS: PANTOPRAZOLE 40 MG TABLET PO SCH (08:27)
[2021-12-06] MEDS: ALBUTEROL 2.5 MG/3 ML NEB RESP TX SCH ×3 (09:00→20:41)
[2021-12-06] MEDS: ENOXAPARIN 40 MG/0.4 ML SYRINGE SUBCUT SCH (20:41)
[2021-12-07] MEDS: ALBUTEROL 2.5 MG/3 ML NEB RESP TX SCH ×4 (01:03→19:10)
[2021-12-07] MEDS: MEROPENEM 500 MG in SODIUM CHLORIDE 0.9% 100 ML IV SCH ×4 (03:29→21:06)
[2021-12-07 07:21] LABS: Calcium 8.8 MG/DL (8.5-10.1); Osmolality,Calculated 283.8 MOS/KG (273-304); Potassium 3.5 MMOL/L (3.5-5.1)
[2021-12-07 08:29] LABS: Basophils % 0.3 % (0.0-0.8); Eosinophils # 0.3 10*3/uL (0.0-0.87); Eosinophils % 4.7 % (0.00-10.9); Hematocrit 39.6 VOL% (42.0-52.0); Hemoglobin 11.9 GM/DL (14.0-18.0); Immature Granulocytes % 0.8 %; Immature Granulocytes Absolute 0.05 #; Lymphocytes # 1.5 10*3/uL (1.4-4.0); Lymphocytes % 24.6 % (21.2-54.2); Mean Corpuscular HGB Conc 30.1 GM/DL (32-36); Mean Corpuscular Volume 82.3 FL (87-102); Mean Platelet Volume 9.2 FL (9.6-12.0); Monocytes # 0.5 10*3/uL (0.11-0.8); Monocytes % 9.1 % (1.7-12.7); Neutrophils % 60.5 % (38.7-73.9); Platelet Count 302 T/CUMM (130-400); Red Blood Count 4.81 MC/CUMM (3.8-5.5); White Blood Count 5.9 T/CUMM (4-12)
[2021-12-07] MEDS: POTASSIUM CHLORIDE 20 MEQ TABLET PO SCH (09:03)
[2021-12-07] MEDS: PANTOPRAZOLE 40 MG TABLET PO SCH (09:03)
[2021-12-07] MEDS ORDERED: TUBERCULIN SKIN TEST 0.1 ML SYRINGE INTRADERM ONE (15:00)
[2021-12-07] MEDS: ENOXAPARIN 40 MG/0.4 ML SYRINGE SUBCUT SCH (21:06)
[2021-12-08] MEDS: ALBUTEROL 2.5 MG/3 ML NEB RESP TX SCH ×5 (01:01→21:22)
[2021-12-08] MEDS: MEROPENEM 500 MG in SODIUM CHLORIDE 0.9% 100 ML IV SCH ×5 (02:28→23:34)
[2021-12-08 06:05] LABS: Basophils % 0.2 % (0.0-0.8); Eosinophils # 0.3 10*3/uL (0.0-0.87); Eosinophils % 5.8 % (0.00-10.9); Hematocrit 39.4 VOL% (42.0-52.0); Immature Granulocytes % 0.4 %; Immature Granulocytes Absolute 0.02 #; Lymphocytes # 1.6 10*3/uL (1.4-4.0); Lymphocytes % 30.4 % (21.2-54.2); Mean Corpuscular HGB Conc 30.5 GM/DL (32-36); Mean Corpuscular Volume 81.9 FL (87-102); Mean Platelet Volume 9.3 FL (9.6-12.0); Monocytes # 0.5 10*3/uL (0.11-0.8); Monocytes % 10.1 % (1.7-12.7); Neutrophils % 53.1 % (38.7-73.9); Platelet Count 299 T/CUMM (130-400); Red Blood Count 4.81 MC/CUMM (3.8-5.5); Red Cell Distribution Width 15.9 % (9.3-17.3); White Blood Count 5.2 T/CUMM (4-12)
[2021-12-08 06:26] LABS: Calcium 8.8 MG/DL (8.5-10.1); Osmolality,Calculated 281.1 MOS/KG (273-304); Potassium 3.8 MMOL/L (3.5-5.1)
[2021-12-08] MEDS: PANTOPRAZOLE 40 MG TABLET PO SCH (08:42)
[2021-12-08] MEDS: POTASSIUM CHLORIDE 20 MEQ TABLET PO SCH (08:42)
[2021-12-08] MEDS ORDERED: ERTAPENEM 1,000 MG in SODIUM CHLORIDE 0.9% 100 ML IV SCH (12:00)
[2021-12-08] MEDS: ENOXAPARIN 40 MG/0.4 ML SYRINGE SUBCUT SCH (20:56)
[2021-12-09] MEDS: ALBUTEROL 2.5 MG/3 ML NEB RESP TX SCH ×4 (01:44→20:05)
[2021-12-09] MEDS: MEROPENEM 500 MG in SODIUM CHLORIDE 0.9% 100 ML IV SCH ×3 (05:31→18:45)
[2021-12-09] MEDS: PANTOPRAZOLE 40 MG TABLET PO SCH (09:07)
[2021-12-09] MEDS: POTASSIUM CHLORIDE 20 MEQ TABLET PO SCH (09:07)
[2021-12-09] MEDS: amLODIPine 5 MG TABLET PO SCH (12:58)
[2021-12-09] MEDS: ENOXAPARIN 40 MG/0.4 ML SYRINGE SUBCUT SCH (21:37)
[2021-12-10] MEDS: ALBUTEROL 2.5 MG/3 ML NEB RESP TX SCH ×3 (00:04→15:20)
[2021-12-10] MEDS: MEROPENEM 500 MG in SODIUM CHLORIDE 0.9% 100 ML IV SCH ×3 (05:45→13:09)
[2021-12-10] MEDS: amLODIPine 5 MG TABLET PO SCH (09:26)
[2021-12-10] MEDS: PANTOPRAZOLE 40 MG TABLET PO SCH (09:27)
[2021-12-10] MEDS: POTASSIUM CHLORIDE 20 MEQ TABLET PO SCH (09:27)
[2021-12-10] MEDS ORDERED: TUBERCULIN SKIN TEST 0.1 ML SYRINGE INTRADERM ONE (10:30)
[2021-12-10 16:37] VITALS: BP 138/68
== END 2021-12-10 17:01 | DRG 463 ==
LOC: N.ED 08:03 → N.EDINP 15:10 → N.3E 18:19
PROVIDERS: ADMIT Internal Medicine; ATTEND Internal Medicine

== ENCOUNTER 2021-12-21 16:19 | Observation (INO) ==
[2021-12-21] MEDS ORDERED: SODIUM CHLORIDE 0.9% 500 ML IV STA (22:33)
[2021-12-21] MEDS ORDERED: ONDANSETRON 4 MG/2 ML VIAL IV STA (22:33)
[2021-12-21 23:24] LABS: Basophils % 0.3 % (0.0-0.8); Eosinophils # 0.2 10*3/uL (0.0-0.87); Eosinophils % 3.3 % (0.00-10.9); Hematocrit 40.6 VOL% (42.0-52.0); Hemoglobin 12.3 GM/DL (14.0-18.0); Immature Granulocytes % 0.6 %; Immature Granulocytes Absolute 0.04 #; Lymphocytes # 1.6 10*3/uL (1.4-4.0); Lymphocytes % 22.7 % (21.2-54.2); Mean Corpuscular HGB Conc 30.3 GM/DL (32-36); Mean Corpuscular Volume 82.9 FL (87-102); Mean Platelet Volume 9.3 FL (9.6-12.0); Monocytes # 0.6 10*3/uL (0.11-0.8); Neutrophils % 64.1 % (38.7-73.9); Platelet Count 324 T/CUMM (130-400); Red Cell Distribution Width 15.9 % (9.3-17.3); White Blood Count 6.9 T/CUMM (4-12)
[2021-12-21 23:37] LABS: Alanine Aminotransferase 21 U/L (16-61); Albumin 2.7 G/DL (3.4-5.0); Alkaline Phosphatase 52 U/L (45-117); Aspartate Amino Transferase 11 U/L (0-37); Blood Urea Nitrogen 11 MG/DL (7-18); Carbon Dioxide 32 MMOL/L (21-32); Chloride 105 MMOL/L (98-107); Glucose 94 MG/DL (74-106); Osmolality,Calculated 281.1 MOS/KG (273-304); Potassium 3.3 MMOL/L (3.5-5.1); Sodium 142 MMOL/L (136-145); Total Protein 5.8 G/DL (6.4-8.2)
[2021-12-21 23:38] LABS: Mucus,Urine Moderate /LPF (Occasional); RBC,Urine 2 /HPF (0-4); Squamous Epithelial Cell,Urine Occasional /HPF (0-10)
[2021-12-21 23:39] LABS: Urine Color Yellow (Yellow)
[2021-12-21 23:40] LABS: Bilirubin,Urine Negative (Negative); Blood, Urine Negative (Negative); Glucose,Urine (UA) Negative (Negative); Ketones,Urine Negative (Negative); Nitrite,Urine Negative (Negative); Protein,Urine Negative (Negative); Urine Appearance Clear (Clear); Urine Urobilinogen 0.2 eU/dL (<2.0)
[2021-12-22 00:14] LABS: Barbiturates Screen,Urine Negative (Negative); Benzodiazepines Screen,Urine Positive (Negative); Cannabinoid Screen,Urine Negative (Negative); Opiate Screen,Urine Negative (Negative); Phencyclidine Screen,Urine Negative (Negative)
[2021-12-22] MEDS ORDERED: ACETAMINOPHEN 325 MG TABLET PO PRN (00:15)
[2021-12-22] MEDS ORDERED: GLUCAGON 1 MG VIAL IM PRN (00:15)
[2021-12-22] MEDS ORDERED: ONDANSETRON 4 MG/2 ML VIAL IV PRN (00:15)
[2021-12-22] MEDS ORDERED: DEXTROSE 10% 250 ML BAG IV PRN (00:30)
[2021-12-22] MEDS ORDERED: LEVOFLOXACIN 750 MG TABLET PO SCH (01:00)
[2021-12-22] MEDS ORDERED: POTASSIUM CHLORIDE 20 MEQ TABLET PO STA (01:40)
[2021-12-22] MEDS ORDERED: LEVOFLOXACIN 750 MG TABLET ONE (04:29)
[2021-12-22 04:45] LABS: Basophils % 0.3 % (0.0-0.8); Eosinophils # 0.3 10*3/uL (0.0-0.87); Eosinophils % 4.8 % (0.00-10.9); Hematocrit 37.5 VOL% (42.0-52.0); Hemoglobin 11.3 GM/DL (14.0-18.0); Immature Granulocytes % 0.5 %; Immature Granulocytes Absolute 0.03 #; Lymphocytes # 1.6 10*3/uL (1.4-4.0); Lymphocytes % 25.4 % (21.2-54.2); Mean Corpuscular HGB Conc 30.1 GM/DL (32-36); Mean Corpuscular Volume 83.1 FL (87-102); Mean Platelet Volume 9.3 FL (9.6-12.0); Monocytes # 0.6 10*3/uL (0.11-0.8); Monocytes % 10.2 % (1.7-12.7); Neutrophils % 58.8 % (38.7-73.9); Platelet Count 289 T/CUMM (130-400); Red Blood Count 4.51 MC/CUMM (3.8-5.5); Red Cell Distribution Width 15.9 % (9.3-17.3); White Blood Count 6.2 T/CUMM (4-12)
[2021-12-22 05:14] LABS: Calcium 8.5 MG/DL (8.5-10.1); Osmolality,Calculated 281.1 MOS/KG (273-304); Potassium 3.5 MMOL/L (3.5-5.1)
[2021-12-22] MEDS: DOCUSATE SODIUM 100 MG CAPSULE PO SCH ×2 (09:53→20:25)
[2021-12-22] MEDS: PARoxetine 20 MG TABLET PO SCH (09:53)
[2021-12-22] MEDS: amLODIPine 5 MG TABLET PO SCH (09:53)
[2021-12-22] MEDS: SULFAMETHOX/TRIMETHOPRIM 800-160 MG TABLET PO SCH ×2 (09:53→20:25)
[2021-12-22] MEDS: PANTOPRAZOLE 40 MG TABLET PO SCH (09:53)
[2021-12-22] MEDS: ENOXAPARIN 40 MG/0.4 ML SYRINGE SUBCUT SCH (09:53)
[2021-12-22] MEDS: DESITIN 4OZ/NYSTATIN 15 GRAM MIXTURE PASTE TOP SCH (20:26)
[2021-12-23] MEDS: ENOXAPARIN 40 MG/0.4 ML SYRINGE SUBCUT SCH (09:18)
[2021-12-23] MEDS: PARoxetine 20 MG TABLET PO SCH (09:19)
[2021-12-23] MEDS: DOCUSATE SODIUM 100 MG CAPSULE PO SCH ×2 (09:19→20:39)
[2021-12-23] MEDS: PANTOPRAZOLE 40 MG TABLET PO SCH (09:19)
[2021-12-23] MEDS: amLODIPine 5 MG TABLET PO SCH (09:19)
[2021-12-23] MEDS: SULFAMETHOX/TRIMETHOPRIM 800-160 MG TABLET PO SCH ×2 (09:19→20:39)
[2021-12-23] MEDS: DESITIN 4OZ/NYSTATIN 15 GRAM MIXTURE PASTE TOP SCH ×2 (09:19→23:30)
[2021-12-23] MEDS: ALPRAZolam 0.5 MG TABLET PO SCH (20:39)
[2021-12-24] MEDS: SULFAMETHOX/TRIMETHOPRIM 800-160 MG TABLET PO SCH ×2 (08:54→22:01)
[2021-12-24] MEDS: DOCUSATE SODIUM 100 MG CAPSULE PO SCH ×2 (08:54→22:01)
[2021-12-24] MEDS: PARoxetine 20 MG TABLET PO SCH (08:54)
[2021-12-24] MEDS: amLODIPine 5 MG TABLET PO SCH (08:55)
[2021-12-24] MEDS: PANTOPRAZOLE 40 MG TABLET PO SCH (08:55)
[2021-12-24] MEDS: ENOXAPARIN 40 MG/0.4 ML SYRINGE SUBCUT SCH (08:56)
[2021-12-24] MEDS: DESITIN 4OZ/NYSTATIN 15 GRAM MIXTURE PASTE TOP SCH ×2 (08:58→22:02)
[2021-12-24] MEDS: ALPRAZolam 0.5 MG TABLET PO SCH (22:01)
[2021-12-25] MEDS: PARoxetine 20 MG TABLET PO SCH (09:35)
[2021-12-25] MEDS: ENOXAPARIN 40 MG/0.4 ML SYRINGE SUBCUT SCH (09:35)
[2021-12-25] MEDS: amLODIPine 5 MG TABLET PO SCH (09:35)
[2021-12-25] MEDS: DOCUSATE SODIUM 100 MG CAPSULE PO SCH ×2 (09:35→20:46)
[2021-12-25] MEDS: SULFAMETHOX/TRIMETHOPRIM 800-160 MG TABLET PO SCH ×2 (09:35→20:46)
[2021-12-25] MEDS: PANTOPRAZOLE 40 MG TABLET PO SCH (09:35)
[2021-12-25] MEDS: DESITIN 4OZ/NYSTATIN 15 GRAM MIXTURE PASTE TOP SCH ×2 (09:36→20:47)
[2021-12-25] MEDS: ALPRAZolam 0.5 MG TABLET PO SCH (20:46)
[2021-12-26] MEDS: ENOXAPARIN 40 MG/0.4 ML SYRINGE SUBCUT SCH (08:32)
[2021-12-26] MEDS: amLODIPine 5 MG TABLET PO SCH (08:32)
[2021-12-26] MEDS: SULFAMETHOX/TRIMETHOPRIM 800-160 MG TABLET PO SCH ×2 (08:32→20:14)
[2021-12-26] MEDS: DOCUSATE SODIUM 100 MG CAPSULE PO SCH ×2 (08:32→20:13)
[2021-12-26] MEDS: PARoxetine 20 MG TABLET PO SCH (08:32)
[2021-12-26] MEDS: PANTOPRAZOLE 40 MG TABLET PO SCH (08:32)
[2021-12-26] MEDS: DESITIN 4OZ/NYSTATIN 15 GRAM MIXTURE PASTE TOP SCH ×2 (08:34→20:14)
[2021-12-26] MEDS: ALPRAZolam 0.5 MG TABLET PO SCH (20:14)
[2021-12-27] MEDS: SULFAMETHOX/TRIMETHOPRIM 800-160 MG TABLET PO SCH ×2 (08:36→21:05)
[2021-12-27] MEDS: amLODIPine 5 MG TABLET PO SCH (08:36)
[2021-12-27] MEDS: PANTOPRAZOLE 40 MG TABLET PO SCH (08:37)
[2021-12-27] MEDS: ENOXAPARIN 40 MG/0.4 ML SYRINGE SUBCUT SCH (08:37)
[2021-12-27] MEDS: PARoxetine 20 MG TABLET PO SCH (08:37)
[2021-12-27] MEDS: DOCUSATE SODIUM 100 MG CAPSULE PO SCH ×2 (08:37→21:05)
[2021-12-27] MEDS: DESITIN 4OZ/NYSTATIN 15 GRAM MIXTURE PASTE TOP SCH ×2 (08:38→21:05)
[2021-12-27] MEDS: ALPRAZolam 0.5 MG TABLET PO SCH (21:05)
[2021-12-28] MEDS: amLODIPine 5 MG TABLET PO SCH (09:25)
[2021-12-28] MEDS: DOCUSATE SODIUM 100 MG CAPSULE PO SCH ×2 (09:25→23:49)
[2021-12-28] MEDS: DESITIN 4OZ/NYSTATIN 15 GRAM MIXTURE PASTE TOP SCH ×2 (09:25→23:51)
[2021-12-28] MEDS: SULFAMETHOX/TRIMETHOPRIM 800-160 MG TABLET PO SCH ×2 (09:25→23:49)
[2021-12-28] MEDS: PANTOPRAZOLE 40 MG TABLET PO SCH (09:25)
[2021-12-28] MEDS: PARoxetine 20 MG TABLET PO SCH (09:25)
[2021-12-28] MEDS: ENOXAPARIN 40 MG/0.4 ML SYRINGE SUBCUT SCH (09:25)
[2021-12-28] MEDS: ALPRAZolam 0.5 MG TABLET PO SCH (23:49)
[2021-12-29] MEDS: PANTOPRAZOLE 40 MG TABLET PO SCH (08:56)
[2021-12-29] MEDS: DOCUSATE SODIUM 100 MG CAPSULE PO SCH ×2 (08:56→20:23)
[2021-12-29] MEDS: amLODIPine 5 MG TABLET PO SCH (08:57)
[2021-12-29] MEDS: DESITIN 4OZ/NYSTATIN 15 GRAM MIXTURE PASTE TOP SCH ×2 (08:57→20:23)
[2021-12-29] MEDS: PARoxetine 20 MG TABLET PO SCH (08:57)
[2021-12-29] MEDS: ENOXAPARIN 40 MG/0.4 ML SYRINGE SUBCUT SCH (08:57)
[2021-12-29] MEDS ORDERED: ALUMINUM/MAGNES/SIMETH MAX STR 30 ML UDCUP PO PRN (19:28)
[2021-12-29] MEDS: ALPRAZolam 0.5 MG TABLET PO SCH (20:22)
[2021-12-30] MEDS: PARoxetine 20 MG TABLET PO SCH (10:07)
[2021-12-30] MEDS: DOCUSATE SODIUM 100 MG CAPSULE PO SCH (10:07)
[2021-12-30] MEDS: amLODIPine 5 MG TABLET PO SCH (10:08)
[2021-12-30] MEDS: PANTOPRAZOLE 40 MG TABLET PO SCH (10:08)
[2021-12-30] MEDS: ENOXAPARIN 40 MG/0.4 ML SYRINGE SUBCUT SCH (10:11)
[2021-12-30] MEDS: DESITIN 4OZ/NYSTATIN 15 GRAM MIXTURE PASTE TOP SCH (10:13)
[2021-12-30 11:52] VITALS: BP 110/67
== END 2021-12-30 12:32 | disposition home or self-care (01) ==
LOC: N.ED 16:19 → N.5E 16:19 → SUATTDRO 12-22 00:15 → N.5E 12-22 04:45
PROVIDERS: ADMIT Emergency Medicine; ATTEND Internal Medicine